=== PATIENT | female | born 1980 | race Caucasian/White ===

== ENCOUNTER 2017-01-16 00:09 | Emergency (ER) | payer MEDICAID, OTHER, SELFPAY ==
[~2017-01-16] VITALS: Ht 152.4 cm; Wt 63.9 kg
[2017-01-16 00:14] VITALS: BP 105/69
[2017-01-16] MEDS ORDERED: PHENAZOPYRIDINE 200 MG TABLET ONE (00:37)
[2017-01-16] MEDS ORDERED: PHENAZOPYRIDINE 200 MG TABLET PO ONE (01:00)
[2017-01-16 01:12] LABS: PATH.CAST-FLAG NOT PRESENT; SPERM-FLAG NOT PRESENT; SRC-FLAG NOT PRESENT; XTAL-FLAG NOT PRESENT; YLC-FLAG NOT PRESENT
== END 2017-01-16 04:59 ==
LOC: ED 01:32
DX: R30.0 Dysuria (principal); R31.9 Hematuria, unspecified; R35.0 Frequency of micturition
CPT/HCPCS: 81001; 87210; 87491; 87591; 87808; 99284

== ENCOUNTER → 2020-05-11 | Outpatient (CLI) | payer BC | END | disposition home or self-care (01) | LOC: STAR 09:46 | PROVIDERS: ATTEND Otolaryngology | DX: U07.1 COVID-19 (principal); J31.0 Chronic rhinitis; J34.2 Deviated nasal septum | CPT/HCPCS: 87635 ==